=== PATIENT | male | born 1965 | race Caucasian/White ===

== ENCOUNTER → 2020-11-22 12:58 | Outpatient (CLI) | payer OTHER, SELFPAY ==
--- NOTE | ~2020-11-22 | XR_ITS ---
EXAMINATION: XR chest 2V DATE: 11/22/2020 13:19 INDICATION: Tobacco use TECHNIQUE: PA and lateral views of the chest are obtained. COMPARISON: 03/07/2016 FINDINGS: The lungs are free of acute opacities. There is no pleural effusion or pneumothorax. The ca rdiomediastinal silhouette is normal. There are bridging osteophytes at multiple levels in the spine, consistent with diffuse idiopathic skeletal hyperostosis (DISH). IMPRESSION: 1. No acute cardiopulmonary abnormality. Reviewed, dictated and finalized at location A. NCIAL OPERATIONS CONSULTANT
== END ==
PROVIDERS: PCP Emergency Medicine; Visit Provider Emergency Medicine
DX: Z72.0 Tobacco use (principal)
CPT/HCPCS: 71046

== ENCOUNTER → 2020-12-12 09:44 | Outpatient (CLI) | payer OTHER, SELFPAY ==
--- NOTE | ~2020-12-12 | XR_ITS ---
XR knee RT 3V DATE: 12/12/2020 10:18 INDICATION: Right knee pain for 2 days TECHNIQUE: 3 views COMPARISON: 07/16/2018 right knee 04/09/2018 right knee FINDINGS: Chronic sclerotic changes of the distal femoral diametaphysis, likely due to osteonecrosis. Osteochondroma of the posteromedial distal femoral metaphysis. There is prominent enthesopathy of the patella at the insertions of the quadriceps and patellar tendo ns, and enthesopathy of the anterior tibial tuberosity at the patellar tendon insertion. There is mil d periarticular spurring of the patella. No fracture or dislocation, periosteal reaction or bone destruction. Mild suprapatellar knee joint ef fusion is suggested, diminished compared to 07/10/2018 IMPRESSION: Mild knee joint effusion Mild osteoarthritis Osteonecrosis of distal femoral diametaphysis Distal femoral osteochondroma Reviewed, dictated and finalized at location B.
== END ==
PROVIDERS: PCP Emergency Medicine; Visit Provider Emergency Medicine
DX: M17.11 Unilateral primary osteoarthritis, right knee (principal); M25.461 Effusion, right knee; M87.9 Osteonecrosis, unspecified; D16.21 Benign neoplasm of long bones of right lower limb
CPT/HCPCS: 73562

== ENCOUNTER → 2021-05-22 11:20 | Outpatient (CLI) | payer OTHER, SELFPAY ==
--- NOTE | ~2021-05-22 | XR_ITS ---
EXAMINATION: XR foot LT 2V EXAM DATE: 05/22/2021 12:02 INDICATION: Left heel pain, possible foreign body plantar surface. TECHNIQUE: Frontal and lateral projections of the left foot. There is no prior study for comparison . FINDINGS: Left calcaneus has large spurs posteriorly and inferiorly. Moderate polyarticular osteoart hritis at the ankle and midfoot. There are no bony erosions identified. No radiopaque foreign bodies identified. There are no acute fractures identified. IMPRESSION: 1. Calcaneal spurs. 2. Polyarticular osteoarthritis. 3. No radiopaque foreign bodies. Reviewed, dictated and finalized at location B.
--- NOTE | ~2021-05-22 | XR_ITS ---
EXAMINATION:XR cervical spine 4-5V DATE: 05/22/2021 12:02 INDICATION: Bilateral hand paresthesia TECHNIQUE: AP, lateral, lateral swimmers and odontoid views of the cervical spine are provided. COMPARISON: None FINDINGS: Alignment is normal. The odontoid is intact. No fracture is identified. The vertebral body heights are normal. There is mild loss of intervertebral disc space height at C5-6. Small degenerativ e osteophytes project from the anterior endplates of multiple vertebral bodies. Prevertebral soft tis sues are normal. IMPRESSION: 1. Mild cervical spondylosis. Reviewed, dictated and finalized at location A.
== END ==
PROVIDERS: PCP Emergency Medicine; Visit Provider Emergency Medicine
DX: M77.32 Calcaneal spur, left foot (principal); M19.072 Primary osteoarthritis, left ankle and foot; M47.812 Spondylosis without myelopathy or radiculopathy, cervical region
CPT/HCPCS: 72050; 73620

== ENCOUNTER → 2021-08-01 14:50 | Outpatient (CLI) | payer OTHER, SELFPAY ==
--- NOTE | ~2021-08-01 | XR_ITS ---
EXAMINATION: XR ankle RT min 3V EXAM DATE: 08/01/2021 15:46 INDICATION: rt ankle pain since starting new job. TECHNIQUE: Right ankle frontal, lateral and oblique projections obtained and reviewed. There is no p rior study for comparison. FINDINGS: Sequela from multiple prior right malleolar avulsion injuries. Mild osteoarthritis of the right ankle which could be secondary to this injuries or primary osteoarthritis. There is mild to mod erate polyarticular midfoot primary osteoarthritis. Large posterior, moderate size inferior calcaneal spurs. There are no acute fractures or dislocations identified. There is no subcutaneous gas. The soft tissue is unremarkable. There are no radiopaque foreign bodies. IMPRESSION: Chronic findings as above. Reviewed, dictated and finalized at location A. ING MACHINE OPERATOR IMPRESSION: Chronic findings as above.
--- NOTE | ~2021-08-01 | XR_ITS ---
XR lumbar spine 2-3V 08/01/2021 15:46 Indication: Low back pain Procedure: 3 views lumbar spine Comparison: No prior studies for comparison. Findings: There is disc narrowing at L3-4, L4-5 and L5-S1. There is a moderate lower lumbar facet hyp ertrophy. No acute fracture or traumatic malalignment. No evidence for spondylolisthesis. There are p rominent lateral marginal osteophytes at multiple levels. Impression: 1: Moderate lumbar spondylosis. Reviewed, dictated and finalized at location A. ING LOT ATTENDANT Impression: 1: Moderate lumbar spondylosis.
--- NOTE | ~2021-08-01 | XR_ITS ---
XR ankle LT min 3V 08/01/2021 15:46 Indication: Left ankle pain Procedure: 4 views left ankle Comparison: 05/22/2021 Findings: There is moderate polyarticular osteoarthritis of the ankle and midfoot. There are multiple loose bodies adjacent to the joint space. Talar dome within normal limits. Ankle mortise intact. The re are prominent degenerative calcaneal enthesophytes. No acute fracture or traumatic malalignment. N o significant soft tissue abnormality. No foreign bodies. Impression: 1: Moderate polyarticular osteoarthritis. Multiple loose bodies adjacent to the ankle joint. Reviewed, dictated and finalized at location A. TLE VENEERING SUPERVISOR Impression: 1: Moderate polyarticular osteoarthritis. Multiple loose bodies adjacent to the ankle joint.
--- NOTE | ~2021-08-01 | XR_ITS ---
XR shoulder LT min 2V 08/01/2021 15:46 Indication: Left shoulder pain Procedure: 4 views left shoulder Comparison: No prior studies for comparison. Findings: There is mild polyarticular osteoarthritis of the left shoulder. No fracture, subluxation o r dislocation. There is ossification adjacent to the humeral head, likely calcific tendinopathy. Impression: 1: Mild polyarticular osteoarthritis of the left shoulder. Reviewed, dictated and finalized at location A. T TELEGRAPHER Impression: 1: Mild polyarticular osteoarthritis of the left shoulder.
--- NOTE | ~2021-08-01 | XR_ITS ---
XR hip LT min 2V 08/01/2021 15:46 Indication: Left hip pain Procedure: 3 views left hip Comparison: No prior studies for comparison. Findings: No fracture, subluxation or dislocation. There is moderate lower lumbar spondylosis. There is mild osteoarthritis of the left hip. No fracture, subluxation or dislocation. No significant soft tissue abnormality. Impression: 1: Mild osteoarthritis of the left hip. Reviewed, dictated and finalized at location A. R LAYER Impression: 1: Mild osteoarthritis of the left hip.
== END ==
PROVIDERS: PCP Emergency Medicine; Visit Provider Emergency Medicine
DX: M19.072 Primary osteoarthritis, left ankle and foot (principal); M24.072 Loose body in left ankle; M47.816 Spondylosis without myelopathy or radiculopathy, lumbar region; M16.12 Unilateral primary osteoarthritis, left hip; M19.071 Primary osteoarthritis, right ankle and foot
CPT/HCPCS: 72100; 73030; 73502; 73610

== ENCOUNTER 2021-09-05 23:08 | Emergency (ER) | payer OTHER, SELFPAY ==
--- NOTE | ~2021-09-05 | CT_ITS ---
EXAMINATION: CT soft tissue neck w con DATE: 09/06/2021 05:54 INDICATION: Right neck swelling. TECHNIQUE: Computed tomography (CT) of the neck was performed with 75 mL Omnipaque-350 intravenous co ntrast. Automated exposure control and iterative reconstruction technique were employed. The dose-cynthia gth product was 545.79 mGy-cm. COMPARISON: None FINDINGS: There are no pathologically enlarged lymph nodes. In the right posterior neck, there is a 1 .6 x 1.1 cm subcutaneous cyst with surrounding fat stranding. There is mucous retention cyst in left maxillary sinus. There is mild plaque in the proximal internal carotid arteries with 0% stenosis rela tive to normal distal artery lumen diameters. There is mild cervical spondylosis. IMPRESSION: 1. 1.6 x 1.1 cm subcutaneous cyst with surrounding fat stranding in the right posterior neck, likely an inflamed or infected sebaceous cyst. Reviewed, dictated and finalized at location A. MIXER IMPRESSION: 1. 1.6 x 1.1 cm subcutaneous cyst with surrounding fat stranding in the right p osterior neck, likely an inflamed or infected sebaceous cyst.
[2021-09-05 23:08] VITALS: BP 154/86; PULSE 82; RESP 17; TEMP 36.2; O2SAT 97
[2021-09-06 04:17] VITALS: BP 163/94; PULSE 73; RESP 16; O2SAT 99
[2021-09-06 05:00] LABS: Basophils Absolute Auto 0.1 K/mm3 (0.0-0.1); Basophils Percent Auto 0.7 % (0.2-1.2); Eosinophils Absolute Auto 0.3 K/mm3 (0-0.3); Eosinophils Percent Auto 2.4 % (0-4.4); Hematocrit 46.1 % (42.0-52.0); Hemoglobin 15.7 g/dL (14.0-18.0); Immature Granulocyte Absolute 0.03 K/mm3 (0.00-0.031); Immature Granulocyte Percent A 0.3 % (0-0.5); Lymphocytes Absolute Auto 2.11 K/mm3 (0.9-3.2); Lymphocytes Percent Auto 20.4 % (18.3-44.2); Mean Corpuscular HGB Conc 34.1 g/dl (32-36); Mean Corpuscular Hemoglobin 30.3 pg (26-34); Mean Corpuscular Volume 88.8 fl (80-100); Mean Platelet Volume 9.1 fl (7.4-10.4); Monocytes Absolute Auto 0.9 K/mm3 (0.1-0.6); Monocytes Percent Auto 8.4 % (2.6-8.5); Neutrophils Percent Auto 67.8 % (45.5-73.1); Platelet Count Result 250 k/mm3 (150-375); Red Blood Count 5.19 M/mm3 (4.6-6.20); Red Cell Distribution Width 12.6 % (11.5-14.5); White Blood Count 10.4 K/mm3 (4.5-10.0)
[2021-09-06 05:15] LABS: Lactic Acid Reflex 1.6 mmol/L (0.7-2.1)
[2021-09-06 05:15] LABS: Alanine Aminotransferase 34 U/L (4-50); Albumin Level 5.1 g/dL (3.5-5.1); Alkaline Phosphatase 38 U/L (38-126); Anion Gap 9 mmol/L (8-16); Aspartate Amino Transferase 29 U/L (17-59); Bilirubin,Total 0.4 mg/dL (0.2-1.3); Blood Urea Nitrogen 18 mg/dL (9-20); Calcium 9.5 mg/dL (8.4-10.2); Carbon Dioxide 28 mmol/L (22-30); Chloride 99 mmol/L (98-107); Estimated CRCL calculation 128 ml/min; Estimated Glomerular Filt Rate > 60; Glucose 138 mg/dL (65-110); Potassium 4.1 mmol/L (3.4-5.0); Sodium 136 mmol/L (137-145)
--- NOTE | 2021-09-06 05:43 | ED.GENADULT ---
HPI - General Adult General Chief complaint: Neck Pain/Injury Stated complaint: wound - right neck Time Seen by Provider: 09/06/21 04:25 History of Present Illness HPI narrative: Patient is a 56-year-old gentleman who presents the emergency department with chief complaint of right-sided neck pain. Patient reports he has history of a cyst on the right side of his neck and reports that he has noticed there is redness and noticed that there is been some streaking up his neck on the right side patient reports not improved by anything reports is not worsened by anything. Related Data Home Medications Medication Instructions Recorded Confirmed atorvastatin 40 mg tablet 40 mg PO DAILY 01/23/20 Allergies Allergy/AdvReac Type Severity Reaction Status Date / Time No Known Allergies Allergy Unknown Unverified 09/06/21 04:20 Review of Systems Review of Systems: A 10 system review of systems was completed on the patient and is negative except for what is stated in the HPI. Nursing and ancillary documentation was reviewed. FORMERLY [facility], [facility] Past Medical History Medical History (Updated 09/06/21 @ 07:11 by Kev Escobedo MD) Obesity MYA (obstructive sleep apnea) Shortness of breath Tobacco abuse Family History Family History Mother Bladder cancer Other Family history of arthritis Social History Social History Smoking status: Current every day smoker Alcohol intake: never Exam Narrative: GENERAL: Well-appearing, well-nourished, and in no acute distress. HEAD: Normocephalic, atraumatic. EYES: PERRLA and EOMI. ENT: Nares clear, no rhinorrhea or epistaxis. Mucous membranes moist. NECK: Supple. There is a small tender red area in the right posterior neck there is some streaking redness and anterior cervical lymphadenopathy. CHEST: Clear to auscultation. No respiratory distress. HEART: Regular rate and rhythm. No murmur heard. Normal peripheral pulses. ABDOMEN: Soft, nontender, nondistended, normal active bowel sounds. EXTREMITIES: Normal range of motion. No edema. SKIN: Warm, dry, no rash. NEURO: No focal deficits. Alert and oriented x3. PSYCH: Normal mood and affect. Course Vital Signs Vital signs: Vital Signs Temperature 36.2 C L 12/16/21 23:08 Pulse Rate 82 09/05/21 23:08 Respiratory Rate 17 09/05/21 23:08 Blood Pressure 154/86 H 09/05/21 23:08 Pulse Oximetry 97 09/05/21 23:08 Temperature 36.2 C L 09/05/21 23:08 Pulse Rate 74 09/06/21 06:02 Respiratory Rate 18 09/06/21 06:02 Blood Pressure 114/82 09/06/21 06:02 Pulse Oximetry 98 09/06/21 06:02 Procedures Abscess I/D neck: Date of Incision: 09/06/21 Time of Incision: 07:10 Side (if applicable): right Local Anesthetic: lidocaine 1% Amount of anesthesia used (mL): 3 Technique: incised with #11 blade Amount of fluid expressed (mL): 3 Packing used?: none I&D Results: Pus Medical Decision Making Vital Signs Vital Signs: Vital Signs Temperature 36.2 C L 09/05/21 23:08 Pulse Rate 82 09/05/21 23:08 Respiratory Rate 17 09/05/21 23:08 Blood Pressure 154/86 H 09/05/21 23:08 Pulse Oximetry 97 09/05/21 23:08 Temperature 36.2 C L 09/05/21 23:08 Pulse Rate 74 09/06/21 06:02 Respiratory Rate 18 09/06/21 06:02 Blood Pressure 114/82 09/06/21 06:02 Pulse Oximetry 98 09/06/21 06:02 Lab Data Result diagrams: 09/06/21 04:53 09/06/21 04:53 Labs: Lab Results 09/06/21 09/06/21 09/06/21 Range/Units 04:52 04:53 04:53 WBC 10.4 H (4.5-10.0) K/mm3 RBC 5.19 (4.6-6.20) M/mm3 Hgb 15.7 (14.0-18.0) g/dL Hct 46.1 (42.0-52.0) % MCV 88.8 (80-100) fl MCH 30.3 (26-34) pg MCHC 34.1 (32-36) g/dl RDW 12.6 (11.5-14.5) % Plt Count 250
[2021-09-06 06:01] VITALS: BP 114/82; PULSE 72; RESP 12; O2SAT 98
[2021-09-06 06:02] VITALS: BP 114/82; PULSE 74; RESP 18; O2SAT 98
[2021-09-06 07:24] VITALS: BP 155/93; PULSE 71; RESP 16; O2SAT 97
== END 2021-09-06 07:25 | disposition home or self-care (01) ==
PROVIDERS: Emergency Provider Emergency Medicine; PCP Emergency Medicine
DX: L02.11 Cutaneous abscess of neck (principal); L03.221 Cellulitis of neck; F17.200 Nicotine dependence, unspecified, uncomplicated
CPT/HCPCS: 10060; 36415; 70491; 80053; 83605; 85025; 87081; 87880; 99284; Q9967

== ENCOUNTER → 2022-03-14 02:21 | Outpatient (CLI) | payer OTHER, SELFPAY ==
[2022-03-14 12:28] LABS: SARS-CoV-2 RNA PCR Positive
== END ==
PROVIDERS: PCP Emergency Medicine; Visit Provider Emergency Medicine
DX: U07.1 COVID-19 (principal)
CPT/HCPCS: C9803; U0003; U0005

== ENCOUNTER → 2022-03-21 03:07 | Outpatient (CLI) | payer OTHER, SELFPAY ==
[2022-03-21 16:50] LABS: SARS-CoV-2 RNA PCR Negative
== END ==
PROVIDERS: PCP Emergency Medicine; Visit Provider Emergency Medicine
DX: R09.89 Other specified symptoms and signs involving the circulatory and respiratory systems (principal); Z20.822 Contact with and (suspected) exposure to COVID-19
CPT/HCPCS: C9803; U0003; U0005

== ENCOUNTER → 2024-03-16 09:32 | Outpatient (CLI) | payer OTHER, SELFPAY ==
--- NOTE | ~2024-03-16 | XR_ITS ---
3 VIEWS LUMBAR SPINE Ordering provider: Dex Pizarro MD History: . LOW BACK PAIN AFTER FALL ON CONCRETE 1 WK AGO . Comparison: None. FINDINGS: VERTEBRAL BODIES: No visible fracture or subluxation. Degenerative changes of the spine. DISK SPACES: Narrowing of the disc L4-L5. SOFT TISSUES: Normal. Bilateral sacroiliacs. IMPRESSION: No acute osseous abnormality lumbar spine. Reviewed, dictated and finalized at location A.
--- NOTE | ~2024-03-16 | XR_ITS ---
XR tibia fibula RT 2V Ordering provider: Dex Pizarro MD History: . FALL ON CONCRETE 1 WK AGO, ANTERIOR LOWER LEG WOUND . Comparison: None. FINDINGS: BONES: No acute fracture or dislocation. Marginal osteophytes are noted. Calcaneus spur. Ossification of the insertion of the tendo Achilles. Healing fracture in the medial and lateral malleoli. Osteoch ondroma seen in the distal femur posteriorly. JOINT SPACES: Normal. SOFT TISSUES: Normal. IMPRESSION: No acute osseous abnormality right leg. Reviewed, dictated and finalized at location A.
== END ==
LOC: EXPCRAD 09:34
PROVIDERS: PCP Emergency Medicine; Visit Provider Emergency Medicine
DX: M54.50 Low back pain, unspecified (principal)
CPT/HCPCS: 72100; 73590

== ENCOUNTER 2024-07-01 15:09 | Emergency (ER) | payer OTHER, SELFPAY ==
[2024-07-01 15:11] VITALS: BP 163/73; PULSE 88; RESP 18; TEMP 37; O2SAT 98
[2024-07-01 15:35] VITALS: BP 142/92; PULSE 79; RESP 20; O2SAT 96
[2024-07-01 15:46] VITALS: BP 139/94; O2SAT 97
--- NOTE | 2024-07-01 16:01 | ED.LOWEXIN ---
HPI - Extremity Injury (Lower) General Chief Complaint: Extremity Injury, Lower Stated Complaint: wound on leg Time Seen by Provider: 07/01/24 15:32 History of Present Illness HPI Narrative: 58-year-old male presents with a wound to his right mackey. Patient states it opened 2 months ago and he was put on antibiotics. Patient states she was doing fine and last week he bumped it and opened again. Patient states this started draining. Patient denies fever. Patient denies pain but does state it stings when air hits it. Patient denies any other symptoms. Patient is a diabetic Related Data Home Medications Medication Instructions Recorded Confirmed atorvastatin 40 mg tablet 40 mg PO DAILY 01/23/20 Allergies Allergy/AdvReac Type Severity Reaction Status Date / Time No Known Allergies Allergy Unknown Unverified 09/06/21 04:20 Review of Systems Review of Systems: A 10 system review of systems was completed on the patient and is negative except for what is stated in the HPI. Nursing and ancillary documentation was reviewed. [facility] Past Medical History Medical History (Updated 07/01/24 @ 16:06 by Jeff Lipscomb APRN) Obesity MYA (obstructive sleep apnea) Shortness of breath Tobacco abuse Family History Family History Mother Bladder cancer Other Family history of arthritis Social History Social History Smoking status: Current every day smoker Alcohol intake: never Exam Narrative: GENERAL: Well-appearing, well-nourished, and in no acute distress. HEAD: Normocephalic, atraumatic. EYES: PERRLA and EOMI. ENT: Nares clear, no rhinorrhea or epistaxis. Mucous membranes moist. NECK: Supple. CHEST: Clear to auscultation. No respiratory distress. HEART: Regular rate and rhythm. No murmur heard. Normal peripheral pulses. ABDOMEN: Soft, nontender, nondistended, normal active bowel sounds. EXTREMITIES: Normal range of motion. No edema. SKIN: Warm, dry, no rash, 0.5 cm wound to mid anterior mackey. Clear drainage, no redness. NEURO: No focal deficits. Alert and oriented x3. PSYCH: Normal mood and affect. Course Course Emergency Course: Patient's vital signs does not indicate sepsis. Will do aerobic culture and start on doxycycline. Patient instructed to follow-up with PCP in 1 week Vital Signs Vital signs: Vital Signs Temperature 37.0 C 07/01/24 15:11 Pulse Rate 88 07/01/24 15:11 Respiratory Rate 18 07/01/24 15:11 Blood Pressure 163/73 H 07/01/24 15:11 Pulse Oximetry 98 07/01/24 15:11 Oxygen Delivery Room Air 07/01/24 15:11 Temperature 37.0 C 07/01/24 15:11 Pulse Rate 79 07/01/24 15:35 Respiratory Rate 20 07/01/24 15:35 Blood Pressure 142/92 H 07/01/24 15:35 Pulse Oximetry 96 07/01/24 15:35 Oxygen Delivery Room Air 07/01/24 15:11 MDM - Extremity Injury (Lower) MDM Narrative Medical decision making narrative: Will obtain wound culture. Start her on 10 days of doxycycline. Patient educated on dressing. Close follow-up with the primary care doctor. Patient states blood sugars have been running normal Discharge Plan Discharge Clinical Impression: Open wound of right lower leg Patient Disposition: Home, Self-Care Condition: Stable Instructions: Antibiotic Form, Wound Infection (ED) Additional Instructions: Take medications as prescribed Follow-up with primary care doctor 1 week Return for worsening symptoms, fevers, or increased drainage Prescriptions: New doxycycline monohydrate 150 mg capsule 150 mg PO BID Qty: 20 0RF No Action atorvastatin 40 mg tablet 40 mg PO DAILY sulfamethoxazole-trimethoprim [Bactrim DS] 800-160 mg tablet 1 tablet PO Q12H 7 Days Qty: 14 0RF cephalexin 500 mg capsule 500 mg PO QID 7 Days Qty: 28 0RF Follow-up/Referrals: Ra Juarez
== END 2024-07-01 16:23 | disposition home or self-care (01) ==
PROVIDERS: Emergency Provider Nurse Practitioner Family; PCP Emergency Medicine
DX: S81.801A Unspecified open wound, right lower leg, initial encounter (principal); E66.9 Obesity, unspecified; Z68.41 Body mass index [BMI] 40.0-44.9, adult; G47.33 Obstructive sleep apnea (adult) (pediatric)
CPT/HCPCS: 87070; 87205; 99283

== ENCOUNTER 2024-11-18 10:21 | Outpatient (CLI) | payer OTHER, SELFPAY | END 2024-11-18 10:22 | disposition home or self-care (01) | PROVIDERS: PCP Emergency Medicine; Visit Provider Emergency Medicine | DX: I77.9 Disorder of arteries and arterioles, unspecified (principal); S81.801A Unspecified open wound, right lower leg, initial encounter; X58.XXXA Exposure to other specified factors, initial encounter | CPT/HCPCS: 93923 ==

== ENCOUNTER → 2025-05-19 08:19 | Outpatient (CLI) | payer OTHER, SELFPAY ==
--- NOTE | ~2025-05-19 | XR_ITS ---
EXAMINATION: XR chest 2V 05/19/2025 08:40 INDICATION: Wheezing PROCEDURE: 2 view chest COMPARISON: 11/22/2020 FINDINGS: The lungs are clear. The cardiomediastinal silhouette is within normal limits. There are no pleural effusions. There is no pneumothorax suspected. IMPRESSION: 1: NO ACUTE CARDIOPULMONARY DISEASE. Reviewed, dictated and finalized at location O.
== END ==
LOC: EXPCRAD 08:21
PROVIDERS: PCP Emergency Medicine; Visit Provider Emergency Medicine
DX: R06.2 Wheezing (principal)
CPT/HCPCS: 71046